=== PATIENT | male | born 1965 | race Caucasian/White ===

== ENCOUNTER 2018-05-20 11:09 | Inpatient (IN) | payer OTHER ==
[2018-05-20 11:43] VITALS: BMI 29.5
--- NOTE | 2018-05-20 14:05 | HP ---
CIWA Score Nausea/Vomitin-No Nausea/No Vomiting Muscle Tremors: 1-None Visible, but [place] Anxiety: 3 Agitation: 4-Moderately Restless Paroxysmal Sweats: 2 Orientation: 0-Oriented Tacttile Disturbances: 0-None Auditory Disturbances: 0-None Visual Disturbances: 0-None Headache: 2-Mild CIWA-Ar Total Score: 12 - Admission Criteria [facility] Guidelines: Admission for Medically Managed Detox: Requires at least one of the followin. CIWA greater than 12 2. Seizures within the past 24 hours 3. Delirium tremens within the past 24 hours 4. Hallucinations within the past 24 hours 5. Acute intervention needed for co occurring medical disorder 6. Acute intervention needed for co occurring psychiatric disorder 7. Severe withdrawal that cannot be handled at a lower level of care (continued vomiting, continued diarrhea, abnormal vital signs) requiring intravenous medication and/or fluids 8. Admission ROS [facility] - [facility] Chief Complaint: ETOH WITHDRAWAL SX Allergies/Adverse Reactions: Allergies Allergy/AdvReac Type Severity Reaction Status Date / Time No Known Drug Allergies Allergy Verified 05/20/18 13:13 History of Present Illness: PATIENT IS FIRST TIME ADMISSION TO [facility] FOR DETOX FROM ETOH. PATIENT STARTED DRINKING AT AGE 10 AND DRINKS UP TO 2-3 PINTS OF VODKA DAILY. LAST DRINK WAS LAST NIGHT. PATIENT DENIES H/O SEIZURES. + H/O BLACKOUTS, FALLS AND BINGE DRINKING. USUALLY HAS FIRST DRINKS UPON AWAKENING. PMH INCLUDES DM, HTN, HLD AND DEPRESSION. DENIES SI/HI SUICIDE ATTEMPTS. NON-COMPLIANT WITH MEDICATIONS. Exam Limitations: No Limitations - Ebola screening Have you traveled outside of the country in the last 21 days: No Have you had contact with anyone from an Ebola affected area: No Have you been sick,other than usual withdrawal symptoms: No Do you have a fever: No - Review of Systems Constitutional: Night Sweats, Changes in sleep EENT: reports: Recent change in vision (USES READING GLASSES) Respiratory: reports: No Symptoms reported Cardiac: reports: No Symptoms Reported GI: reports: Poor Appetite, Poor Fluid Intake, Abdominal cramping : reports: No Symptoms Reported Musculoskeletal: reports: No Symptoms Reported Integumentary: reports: Sweating Neuro: reports: Headache, Tremors Endocrine: reports: No Symptoms Reported Hematology: reports: No Symptoms Reported Psychiatric: reports: Orientated x3, Anxious, Depressed Patient History - Patient Medical History Hx Anemia: No Hx Asthma: No Hx Chronic Obstructive Pulmonary Disease (COPD): No Hx Cancer: No Hx Cardiac Disorders: No Hx Congestive Heart Failure: No Hx Hypertension: Yes (NON COMPLIANT) Hx Hypercholesterolemia: Yes (NON COMPLIANT) Hx Pacemaker: No HX Cerebrovascular Accident: No Hx Seizures: No Hx Dementia: No Hx Diabetes: Yes Hx Gastrointestinal Disorders: No Hx Liver Disease: No Hx Genitourinary Disorders: No Hx Sexually Transmitted Disorders: No Hx Renal Disease (ESRD): No Hx Thyroid Disease: No Hx Human Immunodeficiency Virus (HIV): No Hx Hepatitis C: No Hx Depression: Yes Hx Suicide Attempt: No Hx Bipolar Disorder: No Hx Schizophrenia: No - Patient Surgical History Past Surgical History: Yes Hx Neurologic Surgery: No Hx Cataract Extraction: No Hx Cardiac Surgery: No Hx Lung Surgery: No Hx Breast Surgery: No Hx Breast Biopsy: No Hx Abdominal Surgery: No Hx Appendectomy: No Hx Cholecystectomy: No Hx Genitourinary Surgery: No Hx Orthopedic Surgery: No Other Surgical History: LACERATION OF THE SKULL REPAIR Anesthesia Reaction: No - PPD History Previous Implant?: No Results: +TB PPD to be Administered?: No - Smoking Cessation Smoking history: Never smoked Have you smoked in the past 12 months: No Hx Chewing Tobacco Use: No Initiated information on smoking cessation: No - Substance & Tx. History Hx Alcohol Use: Yes Hx Substance Use: No Substance Use Type: Alcohol Hx Substance Use Treatment: No - Substances Abused Alcohol Route: Oral Frequency: Daily Amount used: 1-2 PINT OF VODKA Age of first use: 10 Date of Last Use: 05/19/18 Family Disease History - Family Disease History Family Disease History: Other: Father (DM, H/O ALCOHOLISM), Brother (ALCOHOLISM) Admission Physical Exam BHS - Vital Signs Vital Signs: Vital Signs - 24 hr 05/20/18 11:41 Temperature 98.9 F Pulse Rate 99 H Respiratory 20 Rate Blood Pressure 148/100 - Physical General Appearance: Yes: Nourished, Appropriately Dressed, Tremorous, Sweating, Anxious HEENTM: Yes: EOMI, Hearing grossly Normal, Normocephalic, Normal Voice, JACOB, Pharynx Normal Respiratory: Yes: Chest Non-Tender, Lungs Clear, Normal Breath Sounds, No Respiratory Distress, No Accessory Muscle Use Neck: Yes: No masses,lesions,Nodules, Supple, Trachea in good position Breast: Yes: Breast Exam Deferred Cardiology: Yes: Regular Rhythm, Regular Rate, S1, S2 Abdominal: Yes: Normal Bowel Sounds, Non Tender, Soft Genitourinary: Yes: Frequency (DUE TO ETOH INTAKE) Back: Yes: Normal Inspection Extremities: Yes: Normal Range of Motion, Non-Tender, Tremors 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, Fully Oriented, Alert, Motor Strength 5/5, Normal Response, Depressed Affect Integumentary: Yes: Normal Color, Warm, Moist Lymphatic: Yes: Within Normal Limits - Diagnostic (1) Alcohol dependence with uncomplicated withdrawal Current Visit: Yes Status: Acute (2) Diabetes 1.5, managed as type 2 Current Visit: Yes Status: Chronic (3) HTN (hypertension) Current Visit: Yes Status: Chronic Qualifiers: Hypertension type: essential hypertension Qualified Code(s): I10 - Essential (primary) hypertension (4) Depressed affect Current Visit: Yes Status: Suspected Cleared for Admission [facility] - Detox or Rehab [facility] Level of Care: Medically Managed Detox Regimen/Protocol: Librium S Breath Alcohol Content Breath Alcohol Content: 0 Urine Drug Screen - Results Drug Screen Negative: Yes
[2018-05-20] MEDS ORDERED: hydrOXYzine PAMOATE 50 MG CAPSULE (FP) PO PRN (14:13)
[2018-05-20] MEDS ORDERED: P-EPHED 60MG/TRIPROLIDI 2.5MG TABLET PO PRN (14:13)
[2018-05-20] MEDS ORDERED: guaiFENesin/D-METHORPHAN HB 10 ML UNIT-DOSE CUPS PO PRN (14:13)
[2018-05-20] MEDS ORDERED: MAGNESIUM CITRATE 300 ML BOTTLE PO PRN (14:13)
[2018-05-20] MEDS ORDERED: MAG HYDROX/AL HYDROX/SIMETH 30 ML UNIT-DOSE CUP PO PRN (14:13)
[2018-05-20] MEDS ORDERED: LOPERAMIDE HCL 2 MG CAPSULE PO PRN (14:13)
[2018-05-20] MEDS ORDERED: MAGNESIUM HYDROX 2400MG/30ML ORAL SUSPENSION 30 ML CUP PO PRN (14:13)
[2018-05-20] MEDS ORDERED: ACETAMINOPHEN 325 MG TABLET (FP) PO PRN (14:13)
[2018-05-20] MEDS ORDERED: IBUPROFEN 400 MG TABLET (FP) PO PRN (14:13)
[2018-05-20] MEDS ORDERED: MENTHOL/PHENOL 1 EACH UD MM PRN (14:13)
[2018-05-20] MEDS ORDERED: chlordiazePOXIDE HCL 25 MG CAPSULE PO PRN (14:16)
[2018-05-20] MEDS: chlordiazePOXIDE HCL 25 MG CAPSULE PO SCH ×2 (17:34→22:18)
[2018-05-20] MEDS: metFORMIN HCL 500 MG TABLET (FP) PO SCH (17:35)
[2018-05-20] MEDS ORDERED: MELATONIN 5 MG TABLETS PO PRN (22:00)
[2018-05-20] MEDS: THIAMINE HCL 100 MG TABLET (FP) PO SCH (22:18)
[2018-05-21] MEDS: chlordiazePOXIDE HCL 25 MG CAPSULE PO SCH ×4 (05:47→22:29)
[2018-05-21] MEDS: metFORMIN HCL 500 MG TABLET (FP) PO SCH ×2 (06:36→17:30)
[2018-05-21] MEDS ORDERED: amLODIPine BESYLATE 5 MG TABLET (FP) PO SCH (10:00)
--- NOTE | 2018-05-21 10:07 | EKG ---
Test Reason : Blood Pressure : / mmHG Vent. Rate : 100 BPM Atrial Rate : 100 BPM P-R Int : 158 ms QRS Dur : 076 ms QT Int : 366 ms P-R-T Axes : 064 -42 010 degrees QTc Int : 472 ms POOR DATA QUALITY, INTERPRETATION MAY BE ADVERSELY AFFECTED NORMAL SINUS RHYTHM POSSIBLE LEFT ATRIAL ENLARGEMENT LEFT AXIS DEVIATION LEFT VENTRICULAR HYPERTROPHY ABNORMAL ECG NO PREVIOUS ECGS AVAILABLE Confirmed by Manav Jose MD ([id number]) on 05/21/2018 10:06:22 AM Referred By: Confirmed By:Manav Jose MD
[2018-05-21 10:27] LABS: HEMOGLOBIN 14.2 GM/dL (11.7-16.9); MCH 30.2 pg (25.7-33.7); MCHC 32.2 g/dl (32.0-35.9); MEAN CELL VOLUME 93.7 fl (80-96); MEAN PLT VOLUME 11.8 fl (7.5-11.1); PLATELET COUNT 165 K/MM3 (134-434); RBC 4.69 M/mm3 (4.00-5.60); RDW 13.2 % (11.9-15.9); WHITE BLOOD COUNT 6.8 K/mm3 (4.0-10.0)
[2018-05-21] MEDS: PRENATAL VITAMINS W/ FOLIC ACID TABLET (FP) PO SCH (10:42)
[2018-05-21 10:55] LABS: ALK PHOS 77 U/L (45-117); ANION GAP 10 MMOL/L (8-16); BILIRUBIN,TOTAL 0.3 mg/dL (0.2-1); BLOOD UREA NITROGEN 13 mg/dL (7-18); CALCIUM 8.9 mg/dL (8.5-10.1); CHLORIDE 100 mmol/L (98-107); CO2 26 mmol/L (21-32); CREATININE 0.9 mg/dL (0.55-1.3); GLUCOSE,RANDOM 253 mg/dL (74-106); POTASSIUM 4.2 mmol/L (3.5-5.1); SGOT/AST 22 U/L (15-37); SGPT/ALT 27 U/L (13-61); SODIUM 135 mmol/L (136-145); TOT PROT 7.5 g/dl (6.4-8.2)
[2018-05-21] MEDS ORDERED: PNEUMOCOCCAL 23 VACCINE 0.5 ML VIAL IM ONE (12:00)
[2018-05-21] MEDS ORDERED: PNEUMOC 13-VAL CONJ-DIP CRM/PF 0.5 ML DISP.SYRIN IM ONE (12:00)
[2018-05-21] MEDS ORDERED: FLU VACCINE QUAD 60 MCG/0.5 ML (MDV 18-19) IM ONE (12:00)
--- NOTE | 2018-05-21 15:48 | PN ---
[facility] CIWA - CIWA Score Nausea/Vomitin-No Nausea/No Vomiting Muscle Tremors: None Anxiety: 4-Mod. Anxious/Guarded Agitation: 3 Paroxysmal Sweats: 3 Orientation: 0-Oriented Tacttile Disturbances: 2-Mild Itch/Numbness/Burn Auditory Disturbances: 2-Mild Harshness/Frighten Visual Disturbances: 0-None Headache: 0-None Present CIWA-Ar Total Score: 14 S Progress Note (SOAP) Subjective: Anxious, Sweating, Diarrhea. Objective: PATIENT A & O X 3, OBSERVED AMBULATING ON UNIT. IN NO ACUTE DISTRESS. 05/21/18 15:43 Vital Signs Temperature 98.2 F 05/21/18 15:29 Pulse Rate 112 H 05/21/18 15:29 Respiratory Rate 18 05/21/18 15:29 Blood Pressure 140/96 05/21/18 15:29 O2 Sat by Pulse Oximetry (%) Laboratory Tests 05/20/18 05/20/18 05/21/18 13:42 16:55 05:45 WBC RBC Hgb Hct MCV MCH MCHC RDW Plt Count MPV Sodium Potassium Chloride Carbon Dioxide Anion Gap BUN Creatinine Creat Clearance w eGFR POC Glucometer 251 317 Random Glucose Calcium Total Bilirubin AST ALT Alkaline Phosphatase Total Protein Albumin RPR Titer HIV 1&2 Antibody Screen Negative HIV P24 Antigen Negative 05/21/18 05/21/18 05/21/18 05:45 05:45 05:45 WBC 6.8 RBC 4.69 Hgb 14.2 Hct 44.0 MCV 93.7 MCH 30.2 MCHC 32.2 RDW 13.2 Plt Count 165 MPV 11.8 H Sodium 135 L Potassium 4.2 Chloride 100 Carbon Dioxide 26 Anion Gap 10 BUN 13 Creatinine 0.9 Creat Clearance w eGFR > 60 POC Glucometer Random Glucose 253 H Calcium 8.9 Total Bilirubin 0.3 AST 22 ALT 27 Alkaline Phosphatase 77 Total Protein 7.5 Albumin 4.0 RPR Titer Nonreactive HIV 1&2 Antibody Screen HIV P24 Antigen 05/21/18 05:49 WBC RBC Hgb Hct MCV MCH MCHC RDW Plt Count MPV Sodium Potassium Chloride Carbon Dioxide Anion Gap BUN Creatinine Creat Clearance w eGFR POC Glucometer 229 Random Glucose Calcium Total Bilirubin AST ALT Alkaline Phosphatase Total Protein Albumin RPR Titer HIV 1&2 Antibody Screen HIV P24 Antigen LABS NOTED. Assessment: 01/08/19 15:44 WITHDRAWAL SYMPTOMS. Plan: CONTINUE DETOX. INCREASE AMLODIPINE DAILY DOSE TO 10 MG PO DAILY.
[2018-05-21] MEDS ORDERED: amLODIPine BESYLATE 5 MG TABLET (FP) PO ONE (16:45)
[2018-05-21] MEDS: INSULIN SLIDING SCALE (NOVOLOG) 1 VIAL SQ SCH (22:26)
[2018-05-21] MEDS: THIAMINE HCL 100 MG TABLET (FP) PO SCH (22:27)
[2018-05-21] MEDS ORDERED: INSULIN (NOVOLOG) ASPART 100 UNITS/ML 10ML VIAL ONE (22:29)
[2018-05-22] MEDS: chlordiazePOXIDE HCL 25 MG CAPSULE PO SCH ×2 (05:43→10:08)
[2018-05-22] MEDS: metFORMIN HCL 500 MG TABLET (FP) PO SCH ×2 (06:32→17:26)
[2018-05-22] MEDS: INSULIN SLIDING SCALE (NOVOLOG) 1 VIAL SQ SCH ×4 (08:30→22:05)
[2018-05-22] MEDS ORDERED: INSULIN (NOVOLOG) ASPART 100 UNITS/ML 10ML VIAL ONE ×4 (08:37→22:07)
[2018-05-22] MEDS: amLODIPine BESYLATE 10 MG TABLET (FP) PO SCH (10:07)
[2018-05-22] MEDS: PRENATAL VITAMINS W/ FOLIC ACID TABLET (FP) PO SCH (10:08)
--- NOTE | 2018-05-22 11:30 | PN ---
S CIWA - CIWA Score Nausea/Vomitin-No Nausea/No Vomiting Muscle Tremors: 4-Moderate,w/Arms Extend Anxiety: 3 Agitation: 3 Paroxysmal Sweats: 3 Orientation: 0-Oriented Tacttile Disturbances: 0-None Auditory Disturbances: 0-None Visual Disturbances: 0-None Headache: 0-None Present CIWA-Ar Total Score: 13 BHS Progress Note (SOAP) Subjective: sweats shakes interrupted sleep body aches Objective: 05/22/18 11:29 Vital Signs Temperature 98.4 F 05/22/18 09:30 Pulse Rate 109 H 05/22/18 09:30 Respiratory Rate 18 05/22/18 09:30 Blood Pressure 113/80 05/22/18 09:30 O2 Sat by Pulse Oximetry (%) Laboratory Tests 05/20/18 05/20/18 05/21/18 13:42 16:55 05:45 WBC RBC Hgb Hct MCV MCH MCHC RDW Plt Count MPV Sodium Potassium Chloride Carbon Dioxide Anion Gap BUN Creatinine Creat Clearance w eGFR POC Glucometer 251 317 Random Glucose Calcium Total Bilirubin AST ALT Alkaline Phosphatase Total Protein Albumin RPR Titer HIV 1&2 Antibody Screen Negative HIV P24 Antigen Negative 05/21/18 05/21/18 05/21/18 05:45 05:45 05:45 WBC 6.8 RBC 4.69 Hgb 14.2 Hct 44.0 MCV 93.7 MCH 30.2 MCHC 32.2 RDW 13.2 Plt Count 165 MPV 11.8 H Sodium 135 L Potassium 4.2 Chloride 100 Carbon Dioxide 26 Anion Gap 10 BUN 13 Creatinine 0.9 Creat Clearance w eGFR > 60 POC Glucometer Random Glucose 253 H Calcium 8.9 Total Bilirubin 0.3 AST 22 ALT 27 Alkaline Phosphatase 77 Total Protein 7.5 Albumin 4.0 RPR Titer Nonreactive HIV 1&2 Antibody Screen HIV P24 Antigen 05/21/18 05/21/18 05/21/18 05:49 16:50 16:52 WBC RBC Hgb Hct MCV MCH MCHC RDW Plt Count MPV Sodium Potassium Chloride Carbon Dioxide Anion Gap BUN Creatinine Creat Clearance w eGFR POC Glucometer 229 402 329 Random Glucose Calcium Total Bilirubin AST ALT Alkaline Phosphatase Total Protein Albumin RPR Titer HIV 1&2 Antibody Screen HIV P24 Antigen 05/21/18 05/22/18 22:25 05:45 WBC RBC Hgb Hct MCV MCH MCHC RDW Plt Count MPV Sodium Potassium Chloride Carbon Dioxide Anion Gap BUN Creatinine Creat Clearance w eGFR POC Glucometer 319 229 Random Glucose Calcium Total Bilirubin AST ALT Alkaline Phosphatase Total Protein Albumin RPR Titer HIV 1&2 Antibody Screen HIV P24 Antigen [id number] ambulating no acute distress BGM ordered qid before meals and bedtime. Assessment: 05/22/18 11:32 withdrawal sx Plan: continue detox increase fluids
[2018-05-22] MEDS: chlordiazePOXIDE 5 MG CAPSULE PO SCH ×2 (17:25→22:09)
[2018-05-22] MEDS: THIAMINE HCL 100 MG TABLET (FP) PO SCH (22:05)
[2018-05-23] MEDS: chlordiazePOXIDE 5 MG CAPSULE PO SCH ×2 (06:13→11:10)
[2018-05-23] MEDS ORDERED: INSULIN (NOVOLOG) ASPART 100 UNITS/ML 10ML VIAL ONE ×4 (06:55→22:12)
[2018-05-23] MEDS: metFORMIN HCL 500 MG TABLET (FP) PO SCH ×2 (06:58→16:39)
[2018-05-23] MEDS: INSULIN SLIDING SCALE (NOVOLOG) 1 VIAL SQ SCH ×4 (07:01→22:10)
[2018-05-23] MEDS: amLODIPine BESYLATE 10 MG TABLET (FP) PO SCH (11:10)
[2018-05-23] MEDS: PRENATAL VITAMINS W/ FOLIC ACID TABLET (FP) PO SCH (11:10)
--- NOTE | 2018-05-23 14:51 | PN ---
B[facility] Progress Note (SOAP) Subjective: Sweating, Fatigue. Objective: PATIENT A & O X 3, OBSERVED AMBULATING ON UNIT. IN NO ACUTE DISTRESS. 05/23/18 14:48 Vital Signs Temperature 98.4 F 05/23/18 13:44 Pulse Rate 108 H 05/23/18 13:44 Respiratory Rate 18 05/23/18 13:44 Blood Pressure 130/76 05/23/18 13:44 O2 Sat by Pulse Oximetry (%) Laboratory Tests 05/20/18 05/20/18 05/21/18 13:42 16:55 05:45 WBC RBC Hgb Hct MCV MCH MCHC RDW Plt Count MPV Sodium Potassium Chloride Carbon Dioxide Anion Gap BUN Creatinine Creat Clearance w eGFR POC Glucometer 251 317 Random Glucose Calcium Total Bilirubin AST ALT Alkaline Phosphatase Total Protein Albumin RPR Titer HIV 1&2 Antibody Screen Negative HIV P24 Antigen Negative 05/21/18 05/21/18 05/21/18 05:45 05:45 05:45 WBC 6.8 RBC 4.69 Hgb 14.2 Hct 44.0 MCV 93.7 MCH 30.2 MCHC 32.2 RDW 13.2 Plt Count 165 MPV 11.8 H Sodium 135 L Potassium 4.2 Chloride 100 Carbon Dioxide 26 Anion Gap 10 BUN 13 Creatinine 0.9 Creat Clearance w eGFR > 60 POC Glucometer Random Glucose 253 H Calcium 8.9 Total Bilirubin 0.3 AST 22 ALT 27 Alkaline Phosphatase 77 Total Protein 7.5 Albumin 4.0 RPR Titer Nonreactive HIV 1&2 Antibody Screen HIV P24 Antigen 05/21/18 05/21/18 05/21/18 05:49 16:50 16:52 WBC RBC Hgb Hct MCV MCH MCHC RDW Plt Count MPV Sodium Potassium Chloride Carbon Dioxide Anion Gap BUN Creatinine Creat Clearance w eGFR POC Glucometer 229 402 329 Random Glucose Calcium Total Bilirubin AST ALT Alkaline Phosphatase Total Protein Albumin RPR Titer HIV 1&2 Antibody Screen HIV P24 Antigen 05/21/18 05/22/18 05/22/18 22:25 05:45 11:51 WBC RBC Hgb Hct MCV MCH MCHC RDW Plt Count MPV Sodium Potassium Chloride Carbon Dioxide Anion Gap BUN Creatinine Creat Clearance w eGFR POC Glucometer 319 229 310 Random Glucose Calcium Total Bilirubin AST ALT Alkaline Phosphatase Total Protein Albumin RPR Titer HIV 1&2 Antibody Screen HIV P24 Antigen 05/22/18 05/22/1805/23/19 16:42 22:04 06:16 WBC RBC Hgb Hct MCV MCH MCHC RDW Plt Count MPV Sodium Potassium Chloride Carbon Dioxide Anion Gap BUN Creatinine Creat Clearance w eGFR POC Glucometer 400 268 268 Random Glucose Calcium Total Bilirubin AST ALT Alkaline Phosphatase Total Protein Albumin RPR Titer HIV 1&2 Antibody Screen HIV P24 Antigen 05/23/18 11:13 WBC RBC Hgb Hct MCV MCH MCHC RDW Plt Count MPV Sodium Potassium Chloride Carbon Dioxide Anion Gap BUN Creatinine Creat Clearance w eGFR POC Glucometer 348 Random Glucose Calcium Total Bilirubin AST ALT Alkaline Phosphatase Total Protein Albumin RPR Titer HIV 1&2 Antibody Screen HIV P24 Antigen LABS NOTED. Assessment: 05/23/18 14:51 WITHDRAWAL SYMPTOMS. Plan: CONTINUE DETOX.
[2018-05-23] MEDS: chlordiazePOXIDE HCL 10 MG CAPSULE PO SCH ×2 (16:39→22:13)
[2018-05-23] MEDS: THIAMINE HCL 100 MG TABLET (FP) PO SCH (22:13)
[2018-05-24] MEDS: chlordiazePOXIDE HCL 10 MG CAPSULE PO SCH (05:40)
[2018-05-24] MEDS: INSULIN SLIDING SCALE (NOVOLOG) 1 VIAL SQ SCH (07:55)
[2018-05-24] MEDS: metFORMIN HCL 500 MG TABLET (FP) PO SCH (07:55)
[2018-05-24] MEDS ORDERED: INSULIN (NOVOLOG) ASPART 100 UNITS/ML 10ML VIAL ONE (08:17)
--- NOTE | 2018-05-24 09:02 | DS ---
[facility] Detox Discharge Summary Admission Date: 05/20/18 Discharge Date: 05/24/18 - History Present History: Alcohol Dependence - Physical Exam Results Vital Signs: Vital Signs Temperature 97.3 F L 05/24/18 06:49 Pulse Rate 85 05/24/18 06:49 Respiratory Rate 18 05/24/18 06:49 Blood Pressure 124/91 05/24/18 06:49 O2 Sat by Pulse Oximetry (%) - Treatment Hospital Course: Detox Protocol Followed, Detoxed Safely, Responded well, Discharged Condition Good, Rehab Referral Accepted - Medication Discharge Medications: Ambulatory Orders Naltrexone HCl [Revia -] 50 mg PO DAILY 05/20/18 Amlodipine Besylate [Norvasc -] 5 mg PO DAILY #30 tablet 05/23/18 Aspirin [Aspirin EC] 81 mg PO DAILY #30 tablet.dr 05/23/18 Glimepiride [Amaryl -] 2 mg PO DAILY #30 tablet 05/23/18 Metformin HCl [Metformin HCl ER] 500 mg PO ASDIR 30 Days #60 tab.er.24h - Diagnosis (1) Alcohol dependence with uncomplicated withdrawal Current Visit: Yes Status: Chronic (2) Diabetes 1.5, managed as type 2 Current Visit: Yes Status: Chronic (3) HTN (hypertension) Current Visit: Yes Status: Chronic Qualifiers: Hypertension type: essential hypertension Qualified Code(s): I10 - Essential (primary) hypertension (4) Depressed affect Current Visit: Yes Status: Suspected - AMA Did Patient Leave Against Medical Advice: No (referred to [facility])
[2018-05-24 09:29] VITALS: BP 132/87; PULSE 103; TEMP 98.2
== END 2018-05-24 09:41 | disposition home or self-care (01) | DRG 775 ==
LOC: YASAS 11:09 → Y6N 14:44
PROC: HZ2ZZZZ Detoxification Services for Substance Abuse Treatment (ICD-10-PCS; principal; 2018-05-20)
DX: F10.230 Alcohol dependence with withdrawal, uncomplicated (principal); F32.9 Major depressive disorder, single episode, unspecified; I10 Essential (primary) hypertension; E13.9 Other specified diabetes mellitus without complications; E78.00 Pure hypercholesterolemia, unspecified; Z91.14 Patient's other noncompliance with medication regimen; Z79.84 Long term (current) use of oral hypoglycemic drugs
CPT/HCPCS: 36415; 71046-TC-FY; 80053; 82962; 85027; 86593; 87389; 90688; 90732; 93005; 93010; G0008; G0009